=== PATIENT | male | born 1960 | race Two or more races ===

== ENCOUNTER 2021-06-27 14:17 | Inpatient (IN) | payer OTHER ==
[2021-06-27] MEDS ORDERED: BISMUTH SUBSALICYLATE 524 MG/30 ML PO PRN (18:54)
[2021-06-27] MEDS ORDERED: MAGNESIUM CITRATE 300 ML BOTTLE PO PRN (18:54)
[2021-06-27] MEDS ORDERED: methaDONE HCL 10 MG TABLET (FOR DETOX USE ONLY) PO ONE (18:54)
[2021-06-27] MEDS ORDERED: MAGNESIUM HYDROX 2400MG/30ML ORAL SUSPENSION 30 ML CUP PO PRN (18:54)
[2021-06-27] MEDS ORDERED: ACETAMINOPHEN 325 MG TABLET (FP) PO PRN ×2 (18:54)
[2021-06-27] MEDS ORDERED: IBUPROFEN 400 MG TABLET (FP) PO PRN (18:54)
[2021-06-27] MEDS ORDERED: MENTHOL/PHENOL 1 EACH UD MM PRN (18:54)
[2021-06-27] MEDS ORDERED: MAG HYDROX/AL HYDROX/SIMETH 30 ML UNIT-DOSE CUP PO PRN (18:54)
[2021-06-27] MEDS ORDERED: NICOTINE 10 MG CARTRIDGE (INHALER) IH PRN (18:54)
[2021-06-27] MEDS ORDERED: ONDANSETRON *ODT* 4 MG TABLET SL PRN (18:54)
[2021-06-27] MEDS ORDERED: SODIUM CHLORIDE NASAL SPRAY 44 ML BOTTLE NS PRN (18:58)
[2021-06-27] MEDS ORDERED: DICYCLOMINE HCL 10 MG CAPSULE PO PRN (19:10)
[2021-06-27 19:11] VITALS: BMI 28.7
[2021-06-27] MEDS ORDERED: diazePAM 5 MG TABLET ONE (19:18)
[2021-06-27] MEDS ORDERED: methaDONE HCL 10 MG TABLET (FOR DETOX USE ONLY) ONE (19:19)
[2021-06-27] MEDS ORDERED: cloNIDine HCL 0.1 MG TABLET ONE (19:19)
[2021-06-27] MEDS: cloNIDine HCL 0.1 MG TABLET PO PRN (19:21)
[2021-06-27] MEDS: diazePAM 5 MG TABLET PO PRN (19:23)
[2021-06-27] MEDS: MELATONIN 5 MG TABLETS PO SCH (22:49)
[2021-06-27] MEDS: THIAMINE HCL 100 MG TABLET (FP) PO SCH (22:50)
[2021-06-28] MEDS ORDERED: methaDONE HCL 10 MG TABLET (FOR DETOX USE ONLY) ONE (09:37)
[2021-06-28] MEDS: amLODIPine BESYLATE 10 MG TABLET (FP) PO SCH (10:46)
[2021-06-28] MEDS: TAMSULOSIN HCL 0.4 MG CAP PO SCH (10:46)
[2021-06-28] MEDS: hydrOXYzine PAMOATE 25 MG CAPSULE (FP) PO PRN (10:46)
[2021-06-28] MEDS: PRENATAL VITAMINS W/ FOLIC ACID TABLET (FP) PO SCH (10:46)
[2021-06-28] MEDS: LORATADINE 10 MG TABLET PO SCH (10:46)
[2021-06-28] MEDS: METHOCARBAMOL 500 MG TABLET PO PRN ×2 (10:47→17:41)
[2021-06-28] MEDS: NICOTINE 21 MG/24 HOURS TOPICAL PATCH TD SCH (10:49)
[2021-06-28 12:07] LABS: HEMATOCRIT 33.7 % (35.4-49); HEMOGLOBIN 11.5 GM/dL (11.7-16.9); MCH 29.6 pg (25.7-33.7); MCHC 34.1 g/dl (32.0-35.9); MEAN CELL VOLUME 86.7 fl (80-96); MEAN PLT VOLUME 7.9 fl (7.5-11.1); PLATELET COUNT 191 10^3/uL (134-434); RBC 3.88 M/mm3 (4.00-5.60); WHITE BLOOD COUNT 5.8 K/mm3 (4.0-10.0)
[2021-06-28 12:16] LABS: ALBUMIN 3.4 g/dl (3.4-5.0); BLOOD UREA NITROGEN 46.7 mg/dL (7-18); CALCIUM 8.7 mg/dL (8.5-10.1)
[2021-06-28 12:19] LABS: CREATININE 2.7 mg/dL (0.55-1.3)
[2021-06-28 12:21] LABS: BILIRUBIN,TOTAL 0.4 mg/dL (0.2-1); TOT PROT 6.5 g/dl (6.4-8.2)
[2021-06-28] MEDS: FUROSEMIDE 20 MG TABLET (FP) PO SCH (14:53)
[2021-06-28] MEDS: cloNIDine HCL 0.1 MG TABLET PO PRN (14:53)
[2021-06-28] MEDS: MELATONIN 5 MG TABLETS PO SCH (22:23)
[2021-06-28] MEDS: THIAMINE HCL 100 MG TABLET (FP) PO SCH (22:23)
[2021-06-28] MEDS: diazePAM 5 MG TABLET PO PRN (22:25)
[2021-06-29] MEDS: FUROSEMIDE 20 MG TABLET (FP) PO SCH (09:15)
[2021-06-29] MEDS: diazePAM 5 MG TABLET PO PRN (09:15)
[2021-06-29] MEDS: METHOCARBAMOL 500 MG TABLET PO PRN ×2 (09:17→21:55)
[2021-06-29] MEDS: LORATADINE 10 MG TABLET PO SCH (09:17)
[2021-06-29] MEDS: PRENATAL VITAMINS W/ FOLIC ACID TABLET (FP) PO SCH (09:17)
[2021-06-29] MEDS: amLODIPine BESYLATE 10 MG TABLET (FP) PO SCH (09:17)
[2021-06-29] MEDS: TAMSULOSIN HCL 0.4 MG CAP PO SCH (09:17)
[2021-06-29] MEDS: NICOTINE 21 MG/24 HOURS TOPICAL PATCH TD SCH (09:18)
[2021-06-29] MEDS ORDERED: methaDONE HCL 10 MG TABLET (FOR DETOX USE ONLY) PO ONE (10:00)
[2021-06-29 15:03] LABS: EPI CELLS 5 /uL (0-25.1); HYALINE CASTS 1 /uL (0-3.1); URINE APPEARANCE CLEAR; URINE BACTERIA 4 /uL (0-1359); URINE BILIRUBIN NEGATIVE (NEGATIVE); URINE COLOR YELLOW; URINE GLUCOSE (UA) NEGATIVE (NEGATIVE); URINE KETONE NEGATIVE (NEGATIVE); URINE LEUK ESTERASE TRACE (NEGATIVE); URINE NITRITE NEGATIVE (NEGATIVE); URINE PROTEIN 1+ (NEGATIVE); URINE RBC 6 /uL (0-23.9); URINE UROBILINOGEN 0.2 mg/dL (0.2-1.0); URINE WBC 31 /uL (0-25.8)
[2021-06-29] MEDS: THIAMINE HCL 100 MG TABLET (FP) PO SCH (21:55)
[2021-06-29] MEDS: cloNIDine HCL 0.1 MG TABLET PO PRN (21:55)
[2021-06-29] MEDS: MELATONIN 5 MG TABLETS PO SCH (21:57)
[2021-06-30] MEDS: METHOCARBAMOL 500 MG TABLET PO PRN ×2 (06:12→22:16)
[2021-06-30] MEDS: TAMSULOSIN HCL 0.4 MG CAP PO SCH (07:30)
[2021-06-30] MEDS ORDERED: methaDONE HCL 10 MG TABLET (FOR DETOX USE ONLY) ONE (09:22)
[2021-06-30] MEDS: FUROSEMIDE 20 MG TABLET (FP) PO SCH (10:07)
[2021-06-30] MEDS: amLODIPine BESYLATE 10 MG TABLET (FP) PO SCH (10:07)
[2021-06-30] MEDS: LORATADINE 10 MG TABLET PO SCH (10:07)
[2021-06-30] MEDS: PRENATAL VITAMINS W/ FOLIC ACID TABLET (FP) PO SCH (10:07)
[2021-06-30] MEDS: NICOTINE 21 MG/24 HOURS TOPICAL PATCH TD SCH (10:08)
[2021-06-30] MEDS: diazePAM 5 MG TABLET PO PRN ×2 (10:08→17:50)
[2021-06-30] MEDS: THIAMINE HCL 100 MG TABLET (FP) PO SCH (22:16)
[2021-06-30] MEDS: MELATONIN 5 MG TABLETS PO SCH (22:17)
[2021-07-01] MEDS: TAMSULOSIN HCL 0.4 MG CAP PO SCH (07:53)
[2021-07-01] MEDS: amLODIPine BESYLATE 10 MG TABLET (FP) PO SCH (09:56)
[2021-07-01] MEDS: METHOCARBAMOL 500 MG TABLET PO PRN (09:56)
[2021-07-01] MEDS: hydrOXYzine PAMOATE 25 MG CAPSULE (FP) PO PRN ×2 (09:57→18:33)
[2021-07-01] MEDS: FUROSEMIDE 20 MG TABLET (FP) PO SCH (09:57)
[2021-07-01] MEDS: PRENATAL VITAMINS W/ FOLIC ACID TABLET (FP) PO SCH (09:58)
[2021-07-01] MEDS: NICOTINE 21 MG/24 HOURS TOPICAL PATCH TD SCH (09:58)
[2021-07-01] MEDS: LORATADINE 10 MG TABLET PO SCH (09:59)
[2021-07-01] MEDS ORDERED: methaDONE HCL 10 MG TABLET (FOR DETOX USE ONLY) PO ONE (10:00)
[2021-07-01] MEDS: THIAMINE HCL 100 MG TABLET (FP) PO SCH (22:11)
[2021-07-01] MEDS: MELATONIN 5 MG TABLETS PO SCH (22:11)
[2021-07-02 06:42] VITALS: BP 116/76; PULSE 60; TEMP 96.2
== END 2021-07-02 09:59 | disposition home or self-care (01) | DRG 773 ==
LOC: YASAS 14:17 → Y6N 06-28 08:45
PROVIDERS: ADMIT Allergy & Immunology; ATTEND Allergy & Immunology
PROC: HZ2ZZZZ Detoxification Services for Substance Abuse Treatment (ICD-10-PCS; principal; 2021-06-28)
DX: F11.23 Opioid dependence with withdrawal (principal); N18.30 Chronic kidney disease, stage 3 unspecified; I10 Essential (primary) hypertension; C64.1 Malignant neoplasm of right kidney, except renal pelvis; D64.9 Anemia, unspecified; N40.0 Benign prostatic hyperplasia without lower urinary tract symptoms; J30.2 Other seasonal allergic rhinitis
CPT/HCPCS: 36415; 80053; 81003; 85027; 86780; 93005; 93010; C9803; J0735; U0003; U0005